=== PATIENT | male | born 1995 | race Caucasian/White ===

== ENCOUNTER 2024-06-04 12:11 | Emergency (ER) | payer OTHER ==
[~2024-06-04] VITALS: Ht 175.3 cm; Wt 112.0 kg
[2024-06-04 12:24] VITALS: TEMP 98.5
[2024-06-04] MEDS: SODIUM CHLORIDE 0.9% 1,000 ML IV ONE (12:33)
[2024-06-04] MEDS: LevETIRAcetam 1,000 MG in DEXTROSE 5%-WATER 100 ML IV ONE (12:38)
[2024-06-04 12:43] LABS: BASOPHILS % (AUTO) 0.4 % (0.0-2.0); EOSINOPHILS % (AUTO) 5.6 % (1.0-6.0); HEMATOCRIT 50.9 % (41-53); HEMOGLOBIN 15.6 g/dL (13.5-17.5); LYMPHOCYTES # (AUTO) 9.5 K/uL (1.0-4.8); LYMPHOCYTES % (AUTO) 42.6 % (22.0-44.0); MEAN CORPUSCULAR HEMOGLOBIN 30.3 pg (26.0-34.0); MEAN CORPUSCULAR HGB CONC 30.7 G/dL (31.0-37.0); MEAN CORPUSCULAR VOLUME 99 fL (80-100); MONOCYTES % (AUTO) 8.9 % (2.0-9.0); NEUTROPHILS # (AUTO) 9.5 K/uL (1.8-7.7); NEUTROPHILS % (AUTO) 42.5 % (40.0-70.0); PLATELET COUNT (AUTO) 421 K/uL (150-450); RED BLOOD CELL COUNT(AUTO) 5.16 MIL/uL (4.50-5.90); RED CELL DISTRIBUTION WIDTH 14.1 % (11.5-14.5); WHITE BLOOD COUNT (AUTO) 22.4 K/uL (4.5-11.0)
[2024-06-04] MEDS ORDERED: LORazepam 2 MG/ML VIAL ONE (12:46)
[2024-06-04 12:52] LABS: ALCOHOL, BLOOD (SERUM) < 3 mg/dL (0-10)
[2024-06-04 12:56] LABS: ALANINE AMINOTRANSFERASE 37 U/L (12-78); ALBUMIN 4.6 g/dL (3.4-5.0); ALKALINE PHOSPHATASE 153 U/L (46-116); ANION GAP 39 mmol/L (8-16); ASPARTATE AMINOTRANSFERASE 20 U/L (15-37); BILIRUBIN,TOTAL 0.9 mg/dL (0.1-1.0); CALCIUM, TOTAL 10.3 mg/dL (8.8-10.5); CHLORIDE 102 mmol/L (98-107); CREATININE 1.67 mg/dL (0.60-1.30); GLOMERULAR FILTR. RATE CALC 49 mL/min (>60); GLUCOSE,RANDOM 244 mg/dL (70-110); POTASSIUM 3.5 mmol/L (3.5-5.1); SODIUM SERUM 146 mmol/L (136-145); TOTAL PROTEIN, SERUM 8.9 g/dL (6.4-8.2); UREA NITROGEN, BLOOD 13 mg/dL (7-18)
[2024-06-04 13:03] LABS: CARBON DIOXIDE 5 mmol/L (22-29)
[2024-06-04 13:43] LABS: ABG BASE EXCESS -13.2 mmol/L (-2.0-3.0); ABG CARBOXYHEMOGLOBIN 0.3 % (0.5-1.5); ABG METHEMOGLOBIN 1.2 % (0.0-1.5); ABG OXYGEN CONTENT 21.4 mL/dL (15.0-23.0); ABG OXYHEMOGLOBIN 96.5 % (94.0-98.0); ABG PCO2 39 mmHg (35.0-48.0); ABG TOTAL HEMOGLOBIN 15.7 G/dL (13.5-17.5); PO2, ARTERIAL BG 116.2 mmHg (83.0-108.0); SOURCE, BLOOD GAS ARTERIAL; TEMPERATURE, FAHRENHEIT, BG 98.5 FAHREN (96.0-98.6)
[2024-06-04 13:44] LABS: ABG PH 7.196 (7.350-7.450); ALLEN TEST, BLOOD GAS POS; O2 DEVICE,BLOOD GAS NON-REB (ROOM AIR); SITE, BLOOD GAS RT BRACHIAL
[2024-06-04] MEDS ORDERED: SODIUM BICARBONATE [ADULT] 8.4% 50 MEQ/50 ML SYRINGE IVP ONE (13:50)
[2024-06-04] MEDS: SODIUM BICARBONATE 50 MEQ/50 ML VIAL IVP ONE (14:00)
[2024-06-04 16:21] VITALS: BP 104/53; PULSE 81; RESP 22; O2SAT 95
[2024-06-04 17:52] LABS: PH,URINE DRUG SCREEN 5.5 (5.0-8.0)
[2024-06-04 18:00] LABS: ALCOHOL, URINE DRUG SCREEN NEGATIVE (NEGATIVE); AMPHET/METH SCREEN,URINE NEGATIVE (NEGATIVE); BARBITURATE SCREEN, URINE NEGATIVE (NEGATIVE); BENZODIAZEPINES SCREEN,URINE POSITIVE (NEGATIVE); CANNABINOID SCREEN,URINE POSITIVE (NEGATIVE); COCAINE SCREEN,URINE NEGATIVE (NEGATIVE); METHADONE SCREEN, URINE NEGATIVE (NEGATIVE); OPIATE SCREEN,URINE NEGATIVE (NEGATIVE); PHENCYCLIDINE SCREEN,URINE NEGATIVE (NEGATIVE)
== END 2024-06-04 19:46 | disposition admitted as inpatient to this hospital (09) ==
LOC: EMS 12:11
DX: G40.909 Epilepsy, unspecified, not intractable, without status epilepticus (principal); E87.20 Acidosis, unspecified
CPT/HCPCS: 99291; 70450; 96365; 96375; 80053; 85025; 36415; 82805; 36600; 72125; 93005; 80307; J0712; G0480; J3490; J7060; 99285; J2060

== ENCOUNTER 2024-06-25 17:51 | Emergency (ER) | payer OTHER ==
[~2024-06-25] VITALS: Ht 167.6 cm; Wt 102.8 kg
[~2024-06-25 17:51] MED LIST: LEVE750T66 PO; ZONI100C87 PO
[2024-06-25 18:01] VITALS: TEMP 98
[2024-06-25] MEDS ORDERED: LACO200T4 PO (18:04)
[2024-06-25] MEDS ORDERED: AMLO10TA55 PO (18:04)
[2024-06-25] MEDS ORDERED: SERT-439 PO (18:04)
[2024-06-25] MEDS ORDERED: LEVE10006 PO (18:04)
[2024-06-25] MEDS ORDERED: QUET50TA24 PO (18:04)
[2024-06-25] MEDS ORDERED: CLON0.252 PO (18:04)
[2024-06-25] MEDS ORDERED: ERGO500054 PO (18:04)
[2024-06-25] MEDS: LORazepam 2 MG/ML VIAL IVP ONE (18:14)
[2024-06-25] MEDS: LevETIRAcetam 1,500 MG in DEXTROSE 5%-WATER 100 ML IV ONE (18:16)
[2024-06-25 18:30] LABS: ANION GAP 24 mmol/L (8-16); CALCIUM, TOTAL 9.4 mg/dL (8.8-10.5); CARBON DIOXIDE 14 mmol/L (22-29); CHLORIDE 101 mmol/L (98-107); CREATININE 1.11 mg/dL (0.60-1.30); GLOMERULAR FILTR. RATE CALC > 60 mL/min (>60); GLUCOSE,RANDOM 178 mg/dL (70-110); POTASSIUM 4.2 mmol/L (3.5-5.1); SODIUM SERUM 139 mmol/L (136-145); UREA NITROGEN, BLOOD 12 mg/dL (7-18)
[2024-06-25 18:32] LABS: BASOPHILS % (AUTO) 0.7 % (0.0-2.0); EOSINOPHILS % (AUTO) 1.8 % (1.0-6.0); HEMATOCRIT 47.4 % (41-53); HEMOGLOBIN 15.6 g/dL (13.5-17.5); LYMPHOCYTES # (AUTO) 3.2 K/uL (1.0-4.8); LYMPHOCYTES % (AUTO) 20.9 % (22.0-44.0); MEAN CORPUSCULAR HGB CONC 32.9 G/dL (31.0-37.0); MEAN CORPUSCULAR VOLUME 91 fL (80-100); MONOCYTES # (AUTO) 0.9 K/uL (0.1-1.0); MONOCYTES % (AUTO) 5.7 % (2.0-9.0); NEUTROPHILS # (AUTO) 10.8 K/uL (1.8-7.7); NEUTROPHILS % (AUTO) 70.9 % (40.0-70.0); PLATELET COUNT (AUTO) 345 K/uL (150-450); RED BLOOD CELL COUNT(AUTO) 5.19 MIL/uL (4.50-5.90); RED CELL DISTRIBUTION WIDTH 13.2 % (11.5-14.5); WHITE BLOOD COUNT (AUTO) 15.3 K/uL (4.5-11.0)
[2024-06-25 18:36] LABS: ALANINE AMINOTRANSFERASE 32 U/L (12-78); ALBUMIN 4.6 g/dL (3.4-5.0); ALKALINE PHOSPHATASE 139 U/L (46-116); ASPARTATE AMINOTRANSFERASE 38 U/L (15-37); BILIRUBIN,TOTAL 0.6 mg/dL (0.1-1.0); TOTAL PROTEIN, SERUM 8.5 g/dL (6.4-8.2)
[2024-06-25 18:45] LABS: RBC MORPHOLOGY COMMENT NORMAL RBC MORPH
[2024-06-25 21:17] VITALS: BP 130/86; PULSE 105; RESP 16; O2SAT 99
== END 2024-06-25 21:18 | disposition home or self-care (01) ==
LOC: EMS 17:51
DX: G40.909 Epilepsy, unspecified, not intractable, without status epilepticus (principal)
CPT/HCPCS: 99291; 96365; 96375; 80053; 85025; 36415; J0712; J2060; J7060

== ENCOUNTER 2024-09-16 10:25 | Emergency (ER) | payer OTHER ==
[~2024-09-16] VITALS: Ht 177.8 cm; Wt 86.4 kg
[~2024-09-16 10:25] MED LIST changes: +AMLO10TA55 PO; +CLON0.252 PO; +ERGO500054 PO; +LACO200T4 PO; +LEVE10006 PO; -LEVE750T66 PO; +QUET50TA24 PO; +SERT-439 PO; -ZONI100C87 PO
[2024-09-16 10:36] VITALS: TEMP 97.7
[2024-09-16] MEDS: SODIUM CHLORIDE 0.9% 1,000 ML IV ONE (10:45)
[2024-09-16 11:28] LABS: ANION GAP 19 mmol/L (8-16); CARBON DIOXIDE 13 mmol/L (22-29); CHLORIDE 104 mmol/L (98-107); CREATININE 1.21 mg/dL (0.60-1.30); GLOMERULAR FILTR. RATE CALC > 60 mL/min (>60); GLUCOSE,RANDOM 264 mg/dL (70-110); POTASSIUM 4.2 mmol/L (3.5-5.1); SODIUM SERUM 136 mmol/L (136-145); UREA NITROGEN, BLOOD 11 mg/dL (7-18)
[2024-09-16 11:33] LABS: ALANINE AMINOTRANSFERASE 46 U/L (12-78); ALBUMIN 3.8 g/dL (3.4-5.0); ALKALINE PHOSPHATASE 157 U/L (46-116); ASPARTATE AMINOTRANSFERASE 32 U/L (15-37); BILIRUBIN,TOTAL 0.2 mg/dL (0.1-1.0); CALCIUM, TOTAL 8.2 mg/dL (8.8-10.5); TOTAL PROTEIN, SERUM 7.5 g/dL (6.4-8.2)
[2024-09-16 11:47] LABS: BASOPHILS % (AUTO) 0.1 % (0.0-2.0); EOSINOPHILS % (AUTO) 0.4 % (1.0-6.0); HEMATOCRIT 43.2 % (41-53); HEMOGLOBIN 14.5 g/dL (13.5-17.5); LYMPHOCYTES # (AUTO) 1.4 K/uL (1.0-4.8); LYMPHOCYTES % (AUTO) 4.7 % (22.0-44.0); MEAN CORPUSCULAR HEMOGLOBIN 29.5 pg (26.0-34.0); MEAN CORPUSCULAR HGB CONC 33.6 G/dL (31.0-37.0); MEAN CORPUSCULAR VOLUME 88 fL (80-100); MONOCYTES # (AUTO) 1.5 K/uL (0.1-1.0); MONOCYTES % (AUTO) 5.2 % (2.0-9.0); NEUTROPHILS # (AUTO) 25.9 K/uL (1.8-7.7); PLATELET COUNT (AUTO) 277 K/uL (150-450); RED BLOOD CELL COUNT(AUTO) 4.92 MIL/uL (4.50-5.90); RED CELL DISTRIBUTION WIDTH 13.1 % (11.5-14.5); WHITE BLOOD COUNT (AUTO) 28.9 K/uL (4.5-11.0)
[2024-09-16 11:49] LABS: NEUTROPHILS % (AUTO) 89.6 % (40.0-70.0)
[2024-09-16] MEDS: LevETIRAcetam 1,000 MG in DEXTROSE 5%-WATER 100 ML IV ONE (12:18)
[2024-09-16 13:07] VITALS: BP 121/74; PULSE 93; RESP 24; O2SAT 96
[2024-09-16] MEDS: ACETAMINOPHEN 325 MG TABLET PO ONE (14:05)
== END 2024-09-16 14:28 | disposition home or self-care (01) ==
LOC: EMS 10:25
DX: G40.909 Epilepsy, unspecified, not intractable, without status epilepticus (principal); R40.0 Somnolence; I10 Essential (primary) hypertension; R73.9 Hyperglycemia, unspecified
CPT/HCPCS: 99284; 96365; 96361; 80048; 80076; 85025; 36415; 93005; J0712; G0482; J7060; J7030

== ENCOUNTER 2024-10-10 07:23 | Emergency (ER) | payer OTHER ==
[~2024-10-10] VITALS: Ht 170.2 cm; Wt 99.8 kg
[2024-10-10 07:35] VITALS: TEMP 98.9
[2024-10-10 08:07] LABS: BASOPHILS % (AUTO) 0.5 % (0.0-2.0); EOSINOPHILS % (AUTO) 1.7 % (1.0-6.0); HEMATOCRIT 42.2 % (41-53); HEMOGLOBIN 14.5 g/dL (13.5-17.5); LYMPHOCYTES # (AUTO) 1.8 K/uL (1.0-4.8); LYMPHOCYTES % (AUTO) 14.3 % (22.0-44.0); MEAN CORPUSCULAR HEMOGLOBIN 30.3 pg (26.0-34.0); MEAN CORPUSCULAR HGB CONC 34.4 G/dL (31.0-37.0); MEAN CORPUSCULAR VOLUME 88 fL (80-100); MONOCYTES # (AUTO) 0.8 K/uL (0.1-1.0); MONOCYTES % (AUTO) 6.5 % (2.0-9.0); NEUTROPHILS # (AUTO) 9.7 K/uL (1.8-7.7); PLATELET COUNT (AUTO) 295 K/uL (150-450); RED BLOOD CELL COUNT(AUTO) 4.81 MIL/uL (4.50-5.90); RED CELL DISTRIBUTION WIDTH 13.3 % (11.5-14.5); WHITE BLOOD COUNT (AUTO) 12.7 K/uL (4.5-11.0)
[2024-10-10] MEDS: LevETIRAcetam 500 MG TABLET PO ONE (08:11)
[2024-10-10] MEDS: LACOSAMIDE 100 MG TABLET PO ONE (08:11)
[2024-10-10 08:15] LABS: ANION GAP 10 mmol/L (8-16); CALCIUM, TOTAL 8.5 mg/dL (8.8-10.5); CARBON DIOXIDE 24 mmol/L (22-29); CHLORIDE 109 mmol/L (98-107); CREATININE 0.97 mg/dL (0.60-1.30); GLOMERULAR FILTR. RATE CALC > 60 mL/min (>60); GLUCOSE,RANDOM 122 mg/dL (70-110); POTASSIUM 4.3 mmol/L (3.5-5.1); SODIUM SERUM 143 mmol/L (136-145); UREA NITROGEN, BLOOD 14 mg/dL (7-18)
[2024-10-10 09:07] VITALS: BP 115/67; PULSE 93; RESP 20; O2SAT 97
== END 2024-10-10 09:14 | disposition home or self-care (01) ==
LOC: EMS 07:24
DX: G40.909 Epilepsy, unspecified, not intractable, without status epilepticus (principal)
CPT/HCPCS: 80048; 85025; 99283

== ENCOUNTER 2024-10-15 17:39 | Emergency (ER) | payer OTHER ==
[~2024-10-15] VITALS: Ht 175.3 cm; Wt 100.0 kg
[2024-10-15 17:42] VITALS: TEMP 98.7
[2024-10-15] MEDS ORDERED: LEVE750T66 PO ×2 (17:46→21:20)
[2024-10-15] MEDS ORDERED: ZONI100C87 PO (17:46)
[2024-10-15 17:54] LABS: EOSINOPHILS % (AUTO) 1.2 % (1.0-6.0); HEMATOCRIT 49.7 % (41-53); HEMOGLOBIN 15.7 g/dL (13.5-17.5); LYMPHOCYTES # (AUTO) 8.1 K/uL (1.0-4.8); LYMPHOCYTES % (AUTO) 37.8 % (22.0-44.0); MEAN CORPUSCULAR HEMOGLOBIN 29.4 pg (26.0-34.0); MEAN CORPUSCULAR HGB CONC 31.6 G/dL (31.0-37.0); MEAN CORPUSCULAR VOLUME 93 fL (80-100); MONOCYTES # (AUTO) 1.9 K/uL (0.1-1.0); NEUTROPHILS # (AUTO) 10.9 K/uL (1.8-7.7); PLATELET COUNT (AUTO) 407 K/uL (150-450); RED BLOOD CELL COUNT(AUTO) 5.35 MIL/uL (4.50-5.90); RED CELL DISTRIBUTION WIDTH 13.4 % (11.5-14.5); WHITE BLOOD COUNT (AUTO) 21.3 K/uL (4.5-11.0)
[2024-10-15 18:00] LABS: ANION GAP 29 mmol/L (8-16); CALCIUM, TOTAL 9.6 mg/dL (8.8-10.5); CARBON DIOXIDE 10 mmol/L (22-29); CHLORIDE 103 mmol/L (98-107); CREATININE 1.36 mg/dL (0.60-1.30); GLOMERULAR FILTR. RATE CALC > 60 mL/min (>60); GLUCOSE,RANDOM 130 mg/dL (70-110); POTASSIUM 4.5 mmol/L (3.5-5.1); SODIUM SERUM 142 mmol/L (136-145); UREA NITROGEN, BLOOD 19 mg/dL (7-18)
[2024-10-15 18:03] LABS: ALCOHOL, BLOOD (SERUM) < 3 mg/dL (0-10)
[2024-10-15 18:05] LABS: PLATELET MORPHOLOGY COMMENT LARGE PLTS PRESENT; RBC MORPHOLOGY COMMENT NORMAL RBC MORPH
[2024-10-15] MEDS: SODIUM CHLORIDE 0.9% 1,000 ML IV ONE (18:23)
[2024-10-15] MEDS: LevETIRAcetam 1,000 MG in DEXTROSE 5%-WATER 100 ML IV ONE (18:23)
[2024-10-15] MEDS: AMPICILLIN SODIUM/SULBACTAM NA 3 GM in SODIUM CHLORIDE 0.9% 100 ML IV ONE (18:23)
[2024-10-15 20:45] VITALS: BP 136/109; PULSE 104; RESP 19; O2SAT 97
[2024-10-15 21:00] LABS: PH,URINE DRUG SCREEN 5.5 (5.0-8.0)
[2024-10-15 21:08] LABS: ALCOHOL, URINE DRUG SCREEN NEGATIVE (NEGATIVE); AMPHET/METH SCREEN,URINE NEGATIVE (NEGATIVE); BARBITURATE SCREEN, URINE NEGATIVE (NEGATIVE); BENZODIAZEPINES SCREEN,URINE POSITIVE (NEGATIVE); CANNABINOID SCREEN,URINE POSITIVE (NEGATIVE); COCAINE SCREEN,URINE NEGATIVE (NEGATIVE); METHADONE SCREEN, URINE NEGATIVE (NEGATIVE); OPIATE SCREEN,URINE NEGATIVE (NEGATIVE); PHENCYCLIDINE SCREEN,URINE NEGATIVE (NEGATIVE)
[2024-10-15] MEDS: LACOSAMIDE 100 MG TABLET PO ONE (21:09)
[2024-10-15] MEDS ORDERED: AMOX-457 PO (21:20)
[2024-10-15] MEDS ORDERED: LACO200T4 PO (21:20)
== END 2024-10-15 22:10 | disposition left against medical advice (07) ==
LOC: EMS 17:39
DX: G40.909 Epilepsy, unspecified, not intractable, without status epilepticus (principal); J18.9 Pneumonia, unspecified organism
CPT/HCPCS: 99284; 96365; 71045; 96366; 80048; 85025; 87040; 36415; 96368; 80307; J0712; G0482; J0295; J7060; J7050; G0480

== ENCOUNTER 2025-05-13 08:14 | Emergency (ER) | payer OTHER ==
[~2025-05-13] VITALS: Ht 177.8 cm; Wt 100.0 kg
[~2025-05-13 08:14] MED LIST changes: +AMOX-457 PO; -LACO200T4 PO; -LEVE10006 PO; +LEVE750T85 PO; +ZONI100C87 PO
[2025-05-13 08:28] VITALS: TEMP 98.3
[2025-05-13] MEDS: SODIUM CHLORIDE 0.9% 1,000 ML IV ONE ×2 (08:39→10:57)
[2025-05-13] MEDS: LevETIRAcetam 2,000 MG in DEXTROSE 5%-WATER 250 ML IV ONE (08:57)
[2025-05-13 09:10] LABS: CALCIUM, TOTAL 8.4 mg/dL (8.8-10.5); CREATININE 1.58 mg/dL (0.60-1.30); GLOMERULAR FILTR. RATE CALC 56.0 mL/min (>60); GLUCOSE,RANDOM 247.0 mg/dL (70-110); SODIUM SERUM 141.0 mmol/L (136-145); UREA NITROGEN, BLOOD 10.0 mg/dL (7-18)
[2025-05-13 09:12] LABS: PLATELET COUNT (AUTO) 365 K/uL (150-450); RED BLOOD CELL COUNT(AUTO) 5.28 MIL/uL (4.50-5.90); RED CELL DISTRIBUTION WIDTH 13.2 % (11.5-14.5)
[2025-05-13 09:17] LABS: WHITE BLOOD COUNT (AUTO) 32.0 K/uL (4.5-11.0)
[2025-05-13 09:36] LABS: BAND NEUTROPHILS % (MANUAL) 4 % (0-5); LYMPHOCYTES % (MANUAL) 4 % (22-44); MONOCYTES % (MANUAL) 5 % (2-9); SEGMENTED NEUTROPHILS % 87 % (40-70)
[2025-05-13] MEDS: ONDANSETRON HCL 4 MG/2 ML VIAL IVP ONE (10:15)
[2025-05-13 10:25] LABS: ALCOHOL, URINE DRUG SCREEN NEGATIVE (NEGATIVE); AMPHET/METH SCREEN,URINE NEGATIVE (NEGATIVE); BARBITURATE SCREEN, URINE NEGATIVE (NEGATIVE); CANNABINOID SCREEN,URINE POSITIVE (NEGATIVE); COCAINE SCREEN,URINE NEGATIVE (NEGATIVE); METHADONE SCREEN, URINE NEGATIVE (NEGATIVE)
[2025-05-13 10:28] LABS: PH,URINE DRUG SCREEN 5.5 (5.0-8.0)
[2025-05-13 10:29] LABS: ASPARTATE AMINOTRANSFERASE 27.0 U/L (15-37); TOTAL PROTEIN, SERUM 8.2 g/dL (6.4-8.2)
[2025-05-13 13:06] VITALS: BP 124/70; PULSE 103; RESP 20; O2SAT 99
[2025-05-13] MEDS ORDERED: CefTRIAXone 1 GM/DEXTROSE 50 ML IV ONE (13:15)
[2025-05-13] MEDS ORDERED: ONDANSETRON HCL 4 MG/2 ML VIAL IVP PRN (13:15)
[2025-05-13] MEDS ORDERED: ACETAMINOPHEN 325 MG TABLET PO PRN (13:15)
[2025-05-13] MEDS ORDERED: INSULIN LISPRO 100 UNITS/ML SQ PRN (13:30)
[2025-05-13] MEDS ORDERED: DEXTROSE 50%-WATER 25 GM/50 ML SYRINGE IVP PRN (13:30)
[2025-05-13] MEDS: CefTRIAXone 1 GM/DEXTROSE 50 ML IV ONE (14:06)
[2025-05-13 14:29] LABS: LACTIC ACID 1.4 mmol/L (0.4-2.0)
[2025-05-13 14:56] LABS: CREATININE,URINE RANDOM 11.1 mg/dL (30.0-125.0)
[2025-05-13] MEDS ORDERED: HEPARIN SODIUM,PORCINE 5,000 UNITS/ML VIAL SQ SCH (16:00)
[2025-05-13] MEDS ORDERED: RINGERS SOLUTION,LACTATED 1,000 ML IV SCH (16:15)
[2025-05-13] MEDS ORDERED: DOCUSATE SODIUM 100 MG CAPSULE PO SCH (21:00)
== END 2025-05-13 16:30 | disposition left against medical advice (07) ==
LOC: EMS 08:14 → EDH 13:12 → UNDOADMIN 13:12 → EDH 16:30 → EMS 16:30 → EDH 05-15 06:04
DX: G40.901 Epilepsy, unspecified, not intractable, with status epilepticus (principal); E87.20 Acidosis, unspecified; R65.11 Systemic inflammatory response syndrome (SIRS) of non-infectious origin with acute organ dysfunction; N17.9 Acute kidney failure, unspecified; R73.9 Hyperglycemia, unspecified; Z79.899 Other long term (current) drug therapy
CPT/HCPCS: 99285; 96365; 96366; 96361; 71045; 96367; 96375; 80048; 80076; 82570; 83036; 83605; 84300; 85025; 87040; 93005; 80307; 84145; 36415; G0482; J0696; J2405; J7060; J7030; G0480; J0712; G0378